=== PATIENT | male | born 2000 | race Caucasian/White ===

== ENCOUNTER 2021-08-26 11:34 | Emergency (ER) | payer OTHER | END 2021-08-26 13:27 | disposition home or self-care (01) | LOC: JP.ED 11:34 | DX: S80.12XA Contusion of left lower leg, initial encounter (principal); S93.402A Sprain of unspecified ligament of left ankle, initial encounter; S80.212A Abrasion, left knee, initial encounter; S80.211A Abrasion, right knee, initial encounter; W13.2XXA Fall from, out of or through roof, initial encounter | CPT/HCPCS: 73562-26-LT; 73562-LT; 73590-26-LT; 73590-LT; 73620-26-LT; 73620-LT; 99283 ==